=== PATIENT | male | born 1990 | race African-American/Black ===

== ENCOUNTER 2021-04-16 16:49 | Emergency (ER) | payer OTHER ==
[~2021-04-16] VITALS: Ht 172.7 cm; Wt 108.9 kg
[2021-04-16] MEDS ORDERED: ONDA4 PO (18:30)
[2021-04-16] MEDS ORDERED: BENZ100A PO (18:30)
== END 2021-04-16 19:20 | disposition home or self-care (01) ==
LOC: ER 16:49
DX: U07.1 COVID-19 (principal)
CPT/HCPCS: 96375; 99284; J1885; M0243; Q0243